=== PATIENT | male | born 1960 | race Caucasian/White ===

== ENCOUNTER → 2018-06-15 | Outpatient (CLI) | payer BC ==
[~2018-06-15] VITALS: Ht 188 cm; Wt 97.5 kg
[~2018-06-15] MED LIST: CATHETER FLUSH 10 ML SYR IV PRN
[2018-06-15 08:05] VITALS: BP 163/101
[2018-06-15 08:18] VITALS: BP 200/97
[2018-06-15 08:20] VITALS: BP 170/100
[2018-06-15 09:56] VITALS: BP 159/106
--- NOTE | 2018-06-15 09:56 | Cardiology Stress Test Report ---
Stress Test Report Type of NM Stress Test: Test Type: NUCLEAR TREADMILL Date of Procedure/Referring: Date of Procedure: Jun 15, 2018 PCP Libertad Ann DO Admitting Physician Libertad Ann DO Indications: Chest pain Baseline Heart Rate: 68 Baseline Blood Pressure: Blood Pressure Systolic: 159 Blood Pressure Diastolic: 106 Baseline EKG: Baseline EKG: sinus rhythm Summary & Conclusion: Summary: The patient was brought to the stress lab after informed consent was taken. Stress test was performed according to the standard Stu protocol. Patient exercised for 10.30 minutes and achieved 12.1 metabolic equal and. Maximum heart rate 144 BPM. Patient achieved 88 percent of maximum predicted heart rate response. Maximum blood pressure 200/97 mmHg. Baseline EKG showed sinus rhythm at 68 BPM. Initial blood pressure was 159/106 mmHg. Patient did not have any chest pain, arrhythmias or ST segment changes during the stress test. 9.96 mCi of Myoview were given for rest imaging and 30.1 mCi of Myoview given for stress imaging. Transient ischemic dilatation score 0.97, EF 61 percent. Normal wall motion. Normal myocardial perfusion imaging during rest and stress. Conclusion: Exercise stress test was negative for ischemia. Excellent functional capacity. Hypertensive response to exercise. Normal LV function with no wall motion abnormalities. Normal myocardial perfusion imaging during rest and stress. Copy Copies To 1: LIBERTAD ANN M RIZWAN MD Jun 15, 2018 09:56
== END ==
LOC: CARD 06:44
PROVIDERS: ATTEND Internal Medicine
DX: R07.9 Chest pain, unspecified (principal)
CPT/HCPCS: 78452; 93017

== ENCOUNTER → 2019-02-01 | Outpatient (CLI) | payer BC ==
--- NOTE | 2019-02-01 16:01 | Diagnostic Imaging Report ---
INDICATION: Newly diagnosed prostate carcinoma. TECHNIQUE: Patient was administered 26 mCi of technetium-99m MDP intravenously and whole body imaging was performed after a three-hour delay. COMPARISON: No prior bone scans are available for comparison. FINDINGS: There is normal uptake of activity by the axial and appendicular skeleton. There is uptake by both kidneys with excretion into the urinary bladder. No suspicious foci of tracer accumulation are seen to suggest osseous metastatic disease. IMPRESSION: No scintigraphic evidence of osseous metastatic disease. Dictated by: Dictated on workstation # [id number]
== END ==
LOC: CARD 10:45
PROVIDERS: ATTEND Urology
DX: C61 Malignant neoplasm of prostate (principal)
CPT/HCPCS: 78306

== ENCOUNTER → 2019-02-01 | Outpatient (CLI) | payer BC ==
--- NOTE | 2019-02-01 12:20 | Diagnostic Imaging Report ---
PROCEDURE: CT abdomen and pelvis without contrast. TECHNIQUE: Multiple contiguous axial images were obtained through the abdomen and pelvis without the use of intravenous contrast. Auto Exposure Controls were utilized during the CT exam to meet ALARA standards for radiation dose reduction. INDICATION: Prostate cancer. COMPARISON: I have no previous. FINDINGS: There were no pathological appearing inguinal lymph nodes. Given limitations owing to the absence of contrast, no suspicious tissue or nodularity along the pelvic sidewalls. There is no periaortic or retroperitoneal lymphadenopathy. There is no mesenteric mass. The unopacified urinary bladder unremarkable. The unobstructed kidneys appeared normal. No stone. Liver, gallbladder, spleen, adrenals and pancreas unremarkable. No ascites, abscess, hematoma or fluid collection. No focal inflammatory process. No suspicious lytic or sclerotic bone lesion. A benign osteochondroma is oriented posteriorly off the inferior aspect of the greater tuberosity of the right femur. IMPRESSION: No findings suggestive of metastatic disease, obstruction, ascites or other acute/suspicious findings. Dictated by: Dictated on workstation # [id number]
== END ==
LOC: RAD 13:37
PROVIDERS: ATTEND Urology
DX: C61 Malignant neoplasm of prostate (principal)
CPT/HCPCS: 74176

== ENCOUNTER 2019-08-31 13:49 | Outpatient (RCR) | payer BC ==
[2019-08-31 14:52] LABS: BUN/CREATININE RATIO 14; CREATININE SERUM 0.93 MG/DL (0.60-1.30); GFR ESTIMATED > 60
== END 2019-09-06 | disposition home or self-care (01) ==
LOC: ONC 13:49
PROVIDERS: ATTEND Internal Medicine Hematology & Oncology
DX: Z51.0 Encounter for antineoplastic radiation therapy (principal); C61 Malignant neoplasm of prostate; I10 Essential (primary) hypertension; Z80.3 Family history of malignant neoplasm of breast; Z80.42 Family history of malignant neoplasm of prostate
CPT/HCPCS: 77300; 77301; 77334; 77338; 82565; 84520; 99204; 99214

== ENCOUNTER 2019-11-02 12:31 | Outpatient (RCR) | payer BC ==
[2019-11-01 11:24] LABS: BASOPHILS % (AUTO) 1 % (0-10); EOSINOPHILS # (AUTO) 0.2 10^3/uL (0.0-0.3); EOSINOPHILS % (AUTO) 6 % (0-10); HEMATOCRIT 43 % (40-54); HEMOGLOBIN 14.5 G/DL (13.3-17.7); LYMPHOCYTES # (AUTO) 0.7 X 10^3 (1.0-4.0); LYMPHOCYTES % (AUTO) 17 % (12-44); MEAN CORPUSCULAR HEMOGLOBIN 32 PG (25-34); MEAN CORPUSCULAR HGB CONC 33 G/DL (32-36); MEAN CORPUSCULAR VOLUME 97 FL (80-99); MEAN PLATELET VOLUME 9.4 FL (7.4-10.4); MONOCYTES # (AUTO) 0.6 X 10^3 (0.0-1.0); MONOCYTES % (AUTO) 13 % (0-12); NEUTROPHILS # (AUTO) 2.7 X 10^3 (1.8-7.8); NEUTROPHILS % (AUTO) 64 % (42-75); PLATELET COUNT 253 10^3/uL (130-400); RED CELL DISTRIBUTION WIDTH 14.4 % (10.0-14.5); WHITE BLOOD COUNT 4.3 10^3/uL (4.3-11.0)
[2019-11-01 11:33] LABS: ALBUMIN 4.3 GM/DL (3.2-4.5)
[2019-11-01 11:34] LABS: CHLORIDE 105 MMOL/L (98-107); POTASSIUM 5.2 MMOL/L (3.6-5.0); SODIUM 140 MMOL/L (135-145)
[2019-11-01 11:36] LABS: GLUCOSE 87 MG/DL (70-105); TOTAL PROTEIN 7.5 GM/DL (6.4-8.2)
[2019-11-01 11:37] LABS: CARBON DIOXIDE 26 MMOL/L (21-32)
[2019-11-01 11:38] LABS: BILIRUBIN,TOTAL 0.4 MG/DL (0.1-1.0)
[2019-11-01 11:40] LABS: ALKALINE PHOSPHATASE 53 U/L (40-136); CREATININE SERUM 1.02 MG/DL (0.60-1.30); GFR ESTIMATED > 60
[2019-11-01 11:41] LABS: BUN/CREATININE RATIO 25
[2019-11-01 11:43] LABS: ALANINE AMINOTRANSFERASE 18 U/L (0-55)
== END 2019-12-07 | disposition home or self-care (01) ==
LOC: ONC 12:31
PROVIDERS: ATTEND Internal Medicine Hematology & Oncology
DX: Z51.0 Encounter for antineoplastic radiation therapy (principal); C61 Malignant neoplasm of prostate; I10 Essential (primary) hypertension; Z80.3 Family history of malignant neoplasm of breast; Z80.42 Family history of malignant neoplasm of prostate
CPT/HCPCS: 77300; 77336; 77338; 77385; 80053; 84153; 85025

== ENCOUNTER 2020-03-06 13:01 | Outpatient (RCR) | payer BC ==
[2020-03-06 13:26] LABS: BASOPHILS % (AUTO) 1 % (0-10); EOSINOPHILS # (AUTO) 0.3 10^3/uL (0.0-0.3); EOSINOPHILS % (AUTO) 6 % (0-10); HEMATOCRIT 40 % (40-54); HEMOGLOBIN 13.8 G/DL (13.3-17.7); LYMPHOCYTES # (AUTO) 0.9 X 10^3 (1.0-4.0); LYMPHOCYTES % (AUTO) 15 % (12-44); MEAN CORPUSCULAR HEMOGLOBIN 33 PG (25-34); MEAN CORPUSCULAR HGB CONC 35 G/DL (32-36); MEAN CORPUSCULAR VOLUME 96 FL (80-99); MEAN PLATELET VOLUME 9.5 FL (7.4-10.4); MONOCYTES # (AUTO) 0.5 X 10^3 (0.0-1.0); MONOCYTES % (AUTO) 9 % (0-12); NEUTROPHILS # (AUTO) 4.1 X 10^3 (1.8-7.8); NEUTROPHILS % (AUTO) 70 % (42-75); PLATELET COUNT 250 10^3/uL (130-400); WHITE BLOOD COUNT 5.9 10^3/uL (4.3-11.0)
[2020-03-06 13:46] LABS: ALANINE AMINOTRANSFERASE 21 U/L (0-55); ALBUMIN 4.2 GM/DL (3.2-4.5); ALKALINE PHOSPHATASE 68 U/L (40-136); BILIRUBIN,TOTAL 0.5 MG/DL (0.1-1.0); BUN/CREATININE RATIO 15; CALCIUM 9.8 MG/DL (8.5-10.1); CARBON DIOXIDE 26 MMOL/L (21-32); CHLORIDE 105 MMOL/L (98-107); CREATININE SERUM 1.01 MG/DL (0.60-1.30); GFR ESTIMATED > 60; GLUCOSE 95 MG/DL (70-105); POTASSIUM 4.5 MMOL/L (3.6-5.0); SODIUM 139 MMOL/L (135-145); TOTAL PROTEIN 7.6 GM/DL (6.4-8.2)
== END 2020-04-20 08:17 | disposition home or self-care (01) ==
LOC: ONC 13:01
PROVIDERS: ATTEND Internal Medicine Hematology & Oncology
DX: C61 Malignant neoplasm of prostate (principal); I10 Essential (primary) hypertension
CPT/HCPCS: 80053; 84153; 85025; G0463; 99213

== ENCOUNTER 2022-04-25 08:25 | Outpatient (CLI) | payer BC ==
[~2022-04-25] VITALS: Ht 185.4 cm; Wt 102.1 kg
[2022-04-25] MEDS ORDERED: ZOLP5TAB7 PO (12:32)
[2022-04-25] MEDS ORDERED: VALS80TA31 PO (12:32)
[2022-04-25] MEDS ORDERED: AMLO-250 PO (12:32)
== END 2022-04-25 12:36 | disposition home or self-care (01) ==
LOC: PREOP 08:25
PROVIDERS: ATTEND Surgery
DX: Z01.818 Encounter for other preprocedural examination (principal)

== ENCOUNTER 2022-04-30 13:30 | Day surgery (SDC) | payer BC ==
[~2022-04-30] VITALS: Ht 184 cm; Wt 102.1 kg
[~2022-04-30 13:30] MED LIST changes: +AMLO-250 PO; -CATHETER FLUSH 10 ML SYR IV PRN; +VALS80TA31 PO; +ZOLP5TAB7 PO
[2022-04-30] MEDS ORDERED: LACTATED RINGERS 1,000 ML IV STA (13:31)
[2022-04-30] MEDS ORDERED: LIDOCAINE JELLY 2% 6 ML SYRINGE MM PRN (13:45)
[2022-04-30 13:50] VITALS: BP 149/97
--- NOTE | 2022-04-30 14:18 | Progress Note-Pre Operative ---
Pre-Operative Progress Note Date of Available H&P: Apr 30, 2022 Date H&P Reviewed: Apr 30, 2022 Time H&P Reviewed: 14:00 History & Physical: No changes noted Pre-Operative Diagnosis: rectal bleeding, hx prostate ca GUNNER HENDRICKS MD Apr 30, 2022 14:18
--- NOTE | 2022-04-30 14:19 | Discharge Inst-Surgical ---
D/C Lap Instructions-ELADIO Follow Up Activity as tolerated High Fiber Diet 25g or more per day Avoid Alcohol, Caffeine, Spicy [place] and Acid foods. Drink 64 fluid oz or more of fluids per day. Symptoms to Report: Fever over 101 degree F, Nausea/Vomiting If any problems/questions: Contact your physician or go to Emergency Room GUNNER HENDRICKS MD Apr 30, 2022 14:19
[2022-04-30] MEDS ORDERED: ONDANSETRON 4 MG (ZOFRAN) ORAL DISSOLVE TAB PO PRN (14:30)
[2022-04-30] MEDS ORDERED: ONDANSETRON 4 MG/2 ML (SDV) Z0FRAN IVP PRN (14:30)
[2022-04-30] MEDS ORDERED: PROPOFOL INJECTION 50 ML IV ONE (14:45)
[2022-04-30 15:24] VITALS: BP 108/65
[2022-04-30 15:29] VITALS: BP 115/70
--- NOTE | 2022-04-30 15:32 | Anesthesia-General Post-Op ---
MAC Patient Condition Mental Status/LOC: Same as Preop Cardiovascular: Satisfactory Nausea/Vomiting: Absent Respiratory: Satisfactory Pain: Controlled Complications: Absent Post Op Complications Complications None Follow Up Care/Instructions Patient Instructions None needed. Anesthesiology Discharge Order Discharge Order Patient is doing well, no complaints, stable vital signs, no apparent adverse anesthesia problems. No complications reported per nursing. MARY ANN BENTLEY DO Apr 30, 2022 15:32
[2022-04-30 15:35] VITALS: BP 115/70
--- NOTE | 2022-04-30 16:03 | Progress Note-Post Operative ---
Post-Operative Progess Note Surgeon (s)/Superintendent House (s) Surgeon GUNNER HENDRICKS MD Superintendent House: none Pre-Operative Diagnosis rectal bleeding, hx prostate ca Post-Operative Diagnosis chronic stage 2 ext and int hemorrhoids, acute radiation proctitis, mild sigmoid diverticulosis. Procedure & Operative Findings Date of Procedure 04/30/22 Procedure Performed/Findings colonoscopy with bx. Anesthesia Type mac Estimated Blood Loss Estimated blood loss (mL): minimal Specimens/Packing Specimens Removed rectal bx GUNNER HENDRICKS MD Apr 30, 2022 16:03
[2022-04-30 16:05] VITALS: BP 130/72
[2022-04-30 16:30] VITALS: BP 130/72
--- NOTE | 2022-05-01 01:59 | OPERATIVE REPORT ---
DATE OF SERVICE: 04/30/2022 ATTENDING PRIMARY CARE PHYSICIAN: Dr. Ann. PREOPERATIVE DIAGNOSIS: Rectal bleeding with history of prostate cancer. POSTOPERATIVE DIAGNOSES: Mild chronic stage II external and internal hemorrhoids, active radiation proctitis. No current active bleeding, mild sigmoid diverticulosis. PROCEDURE: Colonoscopy with biopsy. SURGEON: Gunner Narvaez MD. ANESTHESIA: Monitored anesthesia care. ESTIMATED BLOOD LOSS: Minimal. FINDINGS: Mild chronic stage II external and internal hemorrhoids, active radiation proctitis. No current active bleeding, mild sigmoid diverticulosis. DISPOSITION: The patient tolerated the procedure well. INDICATIONS: The patient is a 61-year-old male, who reports having intermittent episodes of red blood per rectum in the past 5 days. He had a normal screening colonoscopy in 2013. He does not report any family history of colon cancer; however, was diagnosed with prostate cancer in 2019 and underwent radical resection, likely indicating it was early disease as well as radiation therapy. He states that he is otherwise eating well, has not noticed any weight changes and is otherwise feeling fine. DESCRIPTION OF PROCEDURE: The patient was brought to the endoscopy suite, laid in the left lateral decubitus position. After adequate IV pain and sedative medications and monitored anesthesia care, a digital rectal examination was performed. Chronic stage II external and internal hemorrhoids were identified, which were not actively edematous nor inflamed and no bleeding. Normal sphincter tone was felt and there were no palpable masses. There was a surgically absent prostate gland. The endoscope was then to the valves of Ortiz of the rectum where there was patchy red mucosal inflammation throughout the rectum, likely consistent with radiation proctitis. This is the likely cause of the rectal bleeding as well. Multiple biopsies were taken of the rectum with forceps with visualization of good hemostasis. The mucosal inflammation stopped at the rectosigmoid junction. At the sigmoid colon, there was a mild sigmoid diverticulosis. The endoscope was then advanced to the remainder of the descending, transverse and ascending colon to the cecum, which were completely normal. There were no polyps or any neoplasms identified. The endoscope was then slowly withdrawn while taking a second look and suctioning of residual air with no additional findings. The patient tolerated the procedure well. For his active inflammation, we will start him on a taper dose of prednisone in hopes of decreasing the inflammation. We will also recommend a high fiber diet with at least 30 grams of fiber daily to promote soft stools on a daily basis. If this were to worsen despite medical therapy, steroids, enemas may be the next helpful step. 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
== END 2022-04-30 16:30 | disposition home or self-care (01) ==
LOC: ENDO 13:30
PROVIDERS: ATTEND Surgery
DX: K63.89 Other specified diseases of intestine (principal); K57.30 Diverticulosis of large intestine without perforation or abscess without bleeding; K64.1 Second degree hemorrhoids; K64.8 Other hemorrhoids; K62.7 Radiation proctitis; Z85.46 Personal history of malignant neoplasm of prostate; F17.220 Nicotine dependence, chewing tobacco, uncomplicated; K92.1 Melena; E66.9 Obesity, unspecified; Z68.30 Body mass index [BMI] 30.0-30.9, adult; Z79.899 Other long term (current) drug therapy